=== PATIENT | female | born 1995 | race Caucasian/White ===

== ENCOUNTER 2016-08-26 01:04 | Emergency (ER) | payer SELFPAY ==
[~2016-08-26] VITALS: Ht 162.6 cm; Wt 75.0 kg
[~2016-08-26 01:04] MED LIST: VIBRATAB100 MG OR
[2016-08-26 02:45] VITALS: BP 126/90
== END 2016-08-26 02:45 | disposition home or self-care (01) | DRG 605 ==
LOC: ED 01:04
DX: S00.83XA Contusion of other part of head, initial encounter (principal); R55 Syncope and collapse; F17.210 Nicotine dependence, cigarettes, uncomplicated; W19.XXXA Unspecified fall, initial encounter; Y92.009 Unspecified place in unspecified non-institutional (private) residence as the place of occurrence of the external cause